=== PATIENT | female | born 1970 | race Caucasian/White ===

== ENCOUNTER 2023-06-17 06:09 | Day surgery (SDC) | payer SELFPAY ==
[2023-06-17 06:37] VITALS: BP 121/77; PULSE 58; RESP 16; TEMP 36.9; O2SAT 100
[2023-06-17] MEDS: Lactated Ringers 1,000 ML 15 ML IV (06:49)
--- NOTE | 2023-06-17 07:22 | PCM.HP.BLA ---
History and Physical There are no changes in history of physical since H&P of 05/18/21. Pt cleared for surgery by pcp. Dx: Lipodystrophy lateral thighs. Assessment & Plan Assessment/Plan (1) Lipodystrophy: PLAN: Plan For liposuction bilateral outer thighs.
[2023-06-17] MEDS: Clindamycin 900 MG/50 ML BAG 75 MG IV (07:24)
[2023-06-17] MEDS: Sugammadex Sodium 200 MG/2 ML VIAL IV ×2 (07:59→08:10)
[2023-06-17 08:18] VITALS: BP 113/72; BP 121/77; PULSE 69; RESP 16; TEMP 36.1; O2SAT 100
--- NOTE | 2023-06-17 08:29 | OP.PCM_ITS ---
Problems Associated Problem List Diagnoses (1) Lipodystrophy: Report of Operation Date of Procedure: 06/17/23 Pre-Operative Diagnosis: Lipodystrophy bilateral outer thighs Post-Operative Diagnosis: same Surgery/Procedure Performed:: Surgery aborted d/t equipment failure Surgeon: Pat Knowles Type of Anesthesia: General Description of Procedure: Patient was placed under general anesthesia in the supine position. During this process, the [employer] power source was turned on and failed to respond. The rep was here as was biomedical who both evaluated and failed to initiate operability of the equipment. I therefore made the decision to wake the patient and abort the procedure. The nursing surgical services director and patient relations were notified.
[2023-06-17 08:30] VITALS: BP 121/72; BP 121/77; PULSE 64; RESP 16; O2SAT 100
--- NOTE | 2023-06-17 08:34 | EX.PCM.DISCH ---
Discharge Instructions Diet Discharge Diet: No restrictions Activity Discharge Activity: Return to Normal Activity Follow Up Care Test Results: You will be notified for rescheduling once operability is assured. Discharge Plan Admission Attending Provider: Pat Knowles Primary Care Provider: Samra Hart Discharge Orders/Prescriptions Prescriptions: No Action gabapentin 100 mg capsule 100 mg PO TID cephalexin 500 mg capsule 500 mg PO BID Qty: 14 0RF Disposition Disposition (needs filled in before D/C Order can be placed): Home, Self Care
[2023-06-17 08:43] VITALS: BP 114/79; BP 121/77; PULSE 61; RESP 16; TEMP 36.1; O2SAT 100
[2023-06-17 09:15] VITALS: BP 115/76; BP 121/77; PULSE 55; RESP 16; TEMP 36.4; O2SAT 98
== END 2023-06-17 09:26 | disposition home or self-care (01) ==
LOC: SDC 06:15 → AC 06:16
PROVIDERS: PCP Nurse Practitioner; Referring Provider Plastic Surgery; Visit Provider Plastic Surgery
DX: E88.1 Lipodystrophy, not elsewhere classified (principal); J45.909 Unspecified asthma, uncomplicated; Z53.8 Procedure and treatment not carried out for other reasons
CPT/HCPCS: 15879; J7120; J2405